=== PATIENT | male | born 1965 | race Caucasian/White ===

== ENCOUNTER 2017-09-23 15:10 | Inpatient (IN) | payer BC ==
[~2017-09-23] VITALS: Ht 182.9 cm; Wt 108.9 kg
--- NOTE | ~2017-09-23 | O ---
[facility] [place] [address] OPERATIVE REPORT Name: JAME SKY Room #: 409-P ADM IN M.R.#: [id number] Admission: 09/23/17 Attend Phys: Daniel Vides MD Discharge: Date of : 61 Report #: [id number] THIS REPORT FOR: //name// CC: Daniel Vides MD SURGEON: Sreedhar Stanford MD BACKEND TESTER: None. PREOPERATIVE DIAGNOSIS: Symptomatic cholelithiasis, possible acute cholecystitis. POSTOPERATIVE DIAGNOSES: 1. Acute hemorrhagic cholecystitis. 2. Incarcerated umbilical hernia. PROCEDURES: 1. Laparoscopic cholecystectomy with intraoperative cholangiogram. 2. Laparoscopic primary repair of incarcerated umbilical hernia. ANESTHESIA: General endotracheal anesthesia and local anesthetic. ESTIMATED BLOOD LOSS: 10 mL. SPECIMEN: Gallbladder. COMPLICATIONS: None appreciated. INDICATIONS FOR PROCEDURE: This is a 51-year-old male patient of Dr. Daniel Vides, who was seen in [facility] Emergency Room with right upper quadrant abdominal pain radiating to his back. CT of the abdomen and pelvis showed pancreatic pseudocyst changes with possible cholelithiasis without acute cholecystitis changes. His labs are normal. He saw Dr. Vides the following day and was found to have an increase in his white count to 16,000. He was directly admitted thereafter. He underwent an abdominal ultrasound showing cholelithiasis without sonographic evidence for cholecystitis or biliary ductal dilatation. The patient's liver function tests are mildly elevated today. His white blood cell count was 11.6, receiving scheduled Zosyn. He presents now for laparoscopic cholecystectomy with cholangiogram. OPERATIVE FINDINGS: Upon entrance into the abdominal cavity, the gallbladder appeared to be acutely inflamed and tense with areas of punctate hemorrhage. Drainage of the gallbladder with a Topel needle was necessary. Nearly 65 mL of bile was drained from the gallbladder in order to grasp it. The critical view consisting of cystic artery, cystic duct and lower edge of the gallbladder forming a window through which the liver was visible was seen prior to clipping [facility] [address] [place] [address] OPERATIVE REPORT Name: JAME SKY Room #: 409-P [facility] IN M.R.#: [id number] Admission: 09/23/17 Attend Phys: Daniel Vides MD Discharge: Date of : 61 Report #: [id number] the cystic duct for cholangiogram. It should be noted that the cystic duct was located on the lateral aspect of the gallbladder coming off of the infundibulum. A cholangiogram was normal with free flow of contrast into the duodenal sweep. No filling defects were seen within the common bile duct. After removal of the gallbladder from the liver bed, 3 clips remained on the cystic duct stump and one clip on the cystic artery stump. While removing the gallbladder from the abdominal cavity, omentum was seen extending up to the anterior abdominal wall into an incarcerated umbilical hernia. After removing the gallbladder from the abdominal cavity, repair of the hernia was undertaken primarily after reducing the incarcerated tissue. The gallbladder contained numerous large and moderate sized nonpigmented gallstones with acute inflammatory changes seen in the wall of the gallbladder. At the conclusion of the operation, the sponge, needle and instrument counts were correct. DESCRIPTION OF PROCEDURE IN DETAIL: After the risks, benefits and expectations of the operation were discussed in detail with the patient, informed consent was obtained. The patient was identified in the preoperative holding area. He has been receiving scheduled IV antibiotics. He was then taken to the operating room where he was placed in the supine position. SCDs were placed on the patient's bilateral lower extremities and pneumatic compression was initiated. The patient was then given IV sedation and he was intubated without incident. His abdomen was prepped and draped in the standard sterile fashion. A time-out was performed to identify the correct patient and procedure. Local anesthetic was infiltrated into the skin and subcutaneous tissue supraumbilically where a curvilinear incision was made with a #15 blade scalpel. Dissection was carried down to the fascia. An 11 mm Visiport was placed intraperitoneally with a 0-degree angled laparoscope. Pneumoperitoneum was achieved with insufflation of carbon dioxide to 15 mmHg. A 30-degree angled laparoscope was then inserted. A subxiphoid 5 mm and right subcostal 5 mm ports x 2 were placed under direct visualization after local anesthetic was infiltrated into the skin and subcutaneous tissue and appropriately sized incisions were made. Operative findings as noted above. The gallbladder was unable to be grasped and a Topel needle was then used to aspirate 65 mL of bilious fluid from the gallbladder. The gallbladder was then retracted in a cephalad direction. The gallbladder peritoneum was scored medially and laterally and dissection was carried out around the cystic artery and cystic duct to identify both structures as the only two structures entering the gallbladder. The cystic duct was seen coming off of the lateral aspect of the infundibulum. The cystic duct itself was smaller in diameter. A clip was then placed on the cystic duct at its junction with the neck of the gallbladder. A ductotomy was created. A cholangiocatheter was then inserted and cholangiogram performed with findings as noted above. The cholangiocatheter was then removed and the cystic duct was triply clipped and divided with the ultrasonic dissector with a good seal. The cystic artery was divided with the [facility] [address] [place] [address] OPERATIVE REPORT Name: JAME SKY Room #: 409-P [facility] IN M.R.#: [id number] Admission: 09/23/17 Attend Phys: Daniel Vides MD Discharge: Date of : 61 Report #: [id number] ultrasonic dissector as well after placing a clip on the cystic artery. The gallbladder was then dissected out of the liver bed without entrance into the gallbladder or liver bed. The gallbladder was fully detached and placed within an Endopouch and then removed through the supraumbilical port site. While doing so, omentum was seen extending up to the anterior abdominal wall. After removal of the gallbladder, dissection was carried out to reduce the incarcerated content. The hernia defect was clearly identified. A separate [id number] 0 PDS suture was then used to close the hernia defect with the Franck-Lissy laparoscopic fascial closure device. The suture was tied under direct visualization. An 0 PDS suture was then used to close the port site fascial opening. The suture was tagged and the port was replaced. The abdominal cavity was reentered. The liver bed was examined for hemostasis. The Hemoclips were secured. The abdominal cavity was then irrigated and suctioned and return of all drainage ran clear. A 4 grams of Mike was then applied to the liver bed to ensure complete hemostasis. No other significant intra-abdominal pathology was seen. The port site fascial suture was tied under direct visualization to ensure no incorporation of the intra-abdominal content. The abdominal cavity was then desufflated and the remaining ports were removed. The interrupted subcuticular 4-0 Monocryl sutures and Dermabond were used to close the skin incisions. The patient tolerated the procedure well. He was awakened, extubated, and taken to the recovery room in stable condition with no apparent intraoperative complications. The patient would benefit from a followup CT scan in 3-6 months to reevaluate his pseudocyst changes that were seen on his abdominal and pelvic CT scan at [facility]. By: [id number] Sreedhar Stanford MD, FACS /nt
--- NOTE | ~2017-09-23 | PATH ---
[facility] [place] [address] PATHOLOGY RPT PROCEDURE Name: JAME ZAMBRANO Room #: 409-P [facility] IN M.R.#: [id number] Admission: 09/23/17 Date of : 61 Discharge: 09/24/17 Report #: [id number] Path Case #: [id number] [facility] Accession Number: [id number] . 01 Material submitted: . GALLBLADDER . 01 Clinical history: . Cholecystitis . 02 Diagnosis: "Gallbladder", cholecystectomy: - Acute and chronic cholecystitis. - Cholelithiasis. (CML:pit; 09/28/2017) QTP/09/28/2017 . 02 Electronically signed: . Dorothy Bahena MD, Pathologist NPI- [id number] . 01 Gross description: . The specimen is received in formalin, labeled "Jame Zambrano, gallbladder". Received is a previously opened gallbladder measuring 10.7 x 4.3 x 1.8 cm in greatest dimensions displaying dusky pink-newby serosal surfaces. Opening the gallbladder reveals a dusky newby-brown, shaggy mucosa with the gallbladder wall thickness of 0.1 cm. Calculi are present displaying a yellow-chairez and smooth to multifaceted appearance, and no masses or lesions are noted grossly. Manager Night sections from the cystic neck, body, and fundus of the gallbladder are submitted in cassette A1. (CAA; 09/25/2017) QAC/QAC . 02 CPT . 434967 Performed at: [address], [place] [id number] MD Corky Pacheco MD Phone: [phone] Performed at: [address] [id number] MD Merna Jo MD Phone: [phone]
[2017-09-23] MEDS ORDERED: ALLOPURINOL 10100 M1 PO (17:03)
[2017-09-23 18:35] VITALS: BP 165/75
[2017-09-23 20:00] VITALS: BP 168/80
[2017-09-24 04:00] VITALS: BP 174/80
[2017-09-24 05:22] LABS: BASOPHILS 0.2 % (0.0-2.0); EOSINOPHILS 0.2 % (0.0-3.0); HEMATOCRIT 42.7 % (42.0-52.0); HEMOGLOBIN 13.8 gm/dL (14.0-18.0); LYMPHOCYTES 12.3 % (24.0-44.0); MCHC 32.3 g/dL (28.0-37.0); MCV 86.5 fL (80.0-100.0); MONOCYTES 9.6 % (1.0-8.0); PLATELET COUNT 223 thou/uL (150-400); POLYS 77.7 % (36.0-66.0); RBC 4.93 mil/uL (4.50-6.00); RDW 14.1 % (10.5-14.5); WBC 11.6 thou/uL (4.0-11.0)
[2017-09-24 05:35] LABS: ALBUMIN 3.3 g/dL (3.4-5.0); CALCIUM 8.8 mg/dL (8.5-10.1); CREATININE 1.1 mg/dL (0.7-1.3); POTASSIUM 3.8 mmol/L (3.5-5.1); TOTAL BILIRUBIN 1.1 mg/dL (<0.1-1.0); TOTAL PROTEIN 7.1 g/dL (6.4-8.2)
[2017-09-24 07:15] VITALS: BP 162/87
[2017-09-24] MEDS ORDERED: SENNA S TABLET1 EACH PO (15:46)
[2017-09-24] MEDS ORDERED: HYDROCODONE-AP1 EAC6 PO (15:46)
[2017-09-24] MEDS ORDERED: AUGMENTIN 875-1 EACH PO (15:46)
[2017-09-24 17:17] VITALS: BP 162/87
[2017-09-24 17:35] VITALS: BP 152/79
[2017-09-24 18:14] VITALS: BP 162/87
== END 2017-09-24 20:24 | disposition home or self-care (01) | DRG 354 ==
LOC: ULTRA 15:10 → 4N 16:12 → ENTRNSPT 09-24 18:41 → 4N 09-24 20:24
PROVIDERS: Surgery
PROC: 0WQF4ZZ Repair Abdominal Wall, Percutaneous Endoscopic Approach (ICD-10-PCS; principal; 2017-09-24)
PROC: 0FT44ZZ Resection of Gallbladder, Percutaneous Endoscopic Approach (ICD-10-PCS; principal; 2017-09-24)
PROC: BF121ZZ Fluoroscopy of Gallbladder using Low Osmolar Contrast (ICD-10-PCS; principal; 2017-09-24)
DX: K42.0 Umbilical hernia with obstruction, without gangrene (principal); K80.00 Calculus of gallbladder with acute cholecystitis without obstruction; M10.9 Gout, unspecified; D72.829 Elevated white blood cell count, unspecified; J45.909 Unspecified asthma, uncomplicated; Z85.3 Personal history of malignant neoplasm of breast; Z85.118 Personal history of other malignant neoplasm of bronchus and lung; Z79.899 Other long term (current) drug therapy
CPT/HCPCS: 10790; 50010; 50101; 50249; 50411; 50555; 50558; 50900; 50962; 51489; 51975; 52265; 52266; 52287; 53307; 54022; 54118; 55245; 55317; 56462; 56525; 56526; 56970; 62110; 62900; 70005